=== PATIENT | male | born 1955 | race Caucasian/White ===

== ENCOUNTER 2017-12-06 09:12 | Emergency (ER) | payer BC ==
[~2017-12-06] VITALS: Ht 172.7 cm; Wt 99.8 kg
[2017-12-06 09:12] VITALS: BP_SYST 162
--- NOTE | 2017-12-06 09:12 | NUR ---
Pt placed to ER bed 02, to rebecca, report given to TY Robledo.
--- NOTE | 2017-12-06 09:20 | NUR ---
ER Dr. Phelan at bedside examining patient.
--- NOTE | 2017-12-06 09:40 | NUR ---
Patient is alert, oriented x4, and ambulatory. Patient reports history of only diabetes, he is noncompliant with his medication. He states that the tingling in his left hand is resolving. No s/s of distress noted.
[2017-12-06] MEDS ORDERED: INSULIN REGULAR, HUMAN 10 UNITS/0.1 ML INJ IVP ONE ×2 (09:45→11:00)
[2017-12-06] MEDS ORDERED: INSULIN REGULAR, HUMAN 10 UNITS/0.1 ML INJ ONE (09:51)
--- NOTE | 2017-12-06 09:52 | NUR ---
Patient transported to radiology via gurney, accompanied by radiology techs.
--- NOTE | 2017-12-06 10:28 | NUR ---
Blood sugar 284. Dr. Phelan made aware. Stated to check in another 30 minutes.
[2017-12-06 10:41] LABS: PROTHROMBIN TIME 9.7 SECS (9.5-12.5)
[2017-12-06 10:42] LABS: ALBUMIN 3.6 g/dL (3.4-4.8); CALCIUM 8.8 mg/dL (8.4-11.0); CREATININE 0.82 mg/dL (0.55-1.30); POTASSIUM 4.8 mmol/L (3.5-5.1); TOTAL BILIRUBIN 0.5 mg/dL (0.0-1.0)
[2017-12-06 10:44] LABS: BASOPHILS % (AUTO) 0.4 % (0.0-2.0); EOSINOPHILS # (AUTO) 0.1 K/uL (0.0-0.4); EOSINOPHILS % (AUTO) 1.2 % (0.0-4.0); HEMATOCRIT 49.3 % (36-54); HEMOGLOBIN 16.6 g/dL (14.0-18.0); LYMPHOCYTES # (AUTO) 1.8 K/uL (1.0-5.5); LYMPHOCYTES % (AUTO) 20.2 % (20.5-51.5); MEAN CORPUSCULAR HEMOGLOBIN 29 pg (27-31); MEAN CORPUSCULAR HGB CONC 34 % (32-36); MEAN CORPUSCULAR VOLUME 87 fL (79.0-98.0); MONOCYTES # (AUTO) 0.4 K/uL (0.0-1.0); NEUTROPHILS # (AUTO) 6.5 K/uL (1.8-7.7); NEUTROPHILS % (AUTO) 73.2 % (40.0-70.0); PLATELET COUNT (AUTO) 250 K/uL (130-430); RED CELL DISTRIBUTION WIDTH 13.3 % (9.0-15.0); WHITE BLOOD COUNT (AUTO) 8.8 K/uL (4.8-10.8)
--- NOTE | 2017-12-06 10:55 | NUR ---
Accucheck is 291. Dr. Phelan made aware. Stated to give 2 units of regular insulin IV push.
--- NOTE | 2017-12-06 11:11 | NUR ---
Patient given written and verbal discharge instructions and verbalizes understanding. ER MD discussed with patient the results and treatment provided. Patient in stable condition. ID arm band removed. IV catheter removed intact and dressing applied, no active bleeding. Rx of Actos and lisinopril given. Patient educated on pain management and to follow up with PMD. Pain Scale 0/10. Opportunity for questions provided and answered. Medication side effect fact sheet provided.
[2017-12-06 11:14] VITALS: BP_SYST 161
== END 2017-12-06 11:12 | disposition home or self-care (01) ==
LOC: SED 09:12
DX: E11.42 Type 2 diabetes mellitus with diabetic polyneuropathy (principal); I10 Essential (primary) hypertension; R07.89 Other chest pain; R79.1 Abnormal coagulation profile
CPT/HCPCS: 36415; 70450; 71045; 80053; 84484; 85025; 85610; 85730; 96374; 96376; 99285; J1815; 93005